=== PATIENT | male | born 1945 | race Caucasian/White ===

== ENCOUNTER 2016-08-04 10:33 | Outpatient (CLI) | payer MEDICARE, OTHER | END 2016-08-04 10:34 | disposition home or self-care (01) | DX: E11.9 Type 2 diabetes mellitus without complications (principal); E78.5 Hyperlipidemia, unspecified; I10 Essential (primary) hypertension; E29.1 Testicular hypofunction ==

== ENCOUNTER 2017-01-01 20:52 | Outpatient (CLI) | payer MEDICARE, OTHER ==
[2017-01-01 19:28] LABS: HEMOGLOBIN A1C 0.7 g/dL
== END 2017-01-01 20:53 | disposition home or self-care (01) ==
LOC: LAB.WCP 20:52
PROVIDERS: ATTEND Family Medicine
DX: E11.9 Type 2 diabetes mellitus without complications (principal); E29.1 Testicular hypofunction
CPT/HCPCS: 36415; 83036; 84403

== ENCOUNTER 2017-07-08 08:00 | Outpatient (CLI) | payer MEDICARE, OTHER ==
[2017-07-08 19:30] LABS: ALBUMIN 4.3 g/dL (3.2-5.5); ALBUMIN/GLOBULIN RATIO 1.5 (1.0-2.2); ALKALINE PHOSPHATASE 35 IU/L (42-121); ALT ALANINE AMINOTRANSFERASE 23 IU/L (10-60); AST ASPARTATE AMINOTRANSFERASE 29 IU/L (10-42); BILIRUBIN,TOTAL 0.8 mg/dL (0.2-1.0); BUN - BLOOD UREA NITROGEN 20 mg/dL (6-20); CALCIUM 9.7 mg/dL (8.5-10.3); CARBON DIOXIDE - CO2 25 mmol/L (21-32); CHLORIDE 100 mmol/L (101-111); CHOL/HDL RATIO 3.4 (<5.0); CHOLESTEROL 165 mg/dL; CREATININE 0.8 mg/dL (0.6-1.2); GFR - MDRD 95 (>89); GLUCOSE 141 mg/dL (70-100); HDL CHOLESTEROL 49 mg/dL; LDL CHOLESTEROL,CALCULATED 96 mg/dL; SODIUM 136 mmol/L (135-145); TOTAL PROTEIN 7.2 g/dL (6.7-8.2); VLDL CHOLESTEROL 20 mg/dL
[2017-07-08 19:35] LABS: HEMOGLOBIN A1C 0.89 g/dL; HEMOGLOBIN A1C % 7.2 % (4.6-6.2)
== END 2017-07-08 08:01 | disposition home or self-care (01) ==
LOC: LAB.WCP 08:00
PROVIDERS: ATTEND Family Medicine
DX: E29.1 Testicular hypofunction (principal); E11.9 Type 2 diabetes mellitus without complications; Z12.5 Encounter for screening for malignant neoplasm of prostate; I10 Essential (primary) hypertension; E78.5 Hyperlipidemia, unspecified
CPT/HCPCS: 36415; 80053; 80061; 82043; 83036; 84443; G0103; 83721; 84153

== ENCOUNTER 2017-08-24 06:16 | Day surgery (SDC) | payer MEDICARE, OTHER ==
[2017-08-24] MEDS ORDERED: LACTATED RINGERS 1,000 ML IV ONE ×2 (06:48→08:19)
[2017-08-24] MEDS ORDERED: fentaNYL 100 MCG/2 ML VIAL IVP ONE (07:40)
[2017-08-24] MEDS ORDERED: MIDAZOLAM 2 MG/2 ML VIAL IVP ONE (07:40)
[2017-08-24 08:41] VITALS: BP 94/44
== END 2017-08-24 06:17 | disposition home or self-care (01) ==
LOC: SDS 06:16
PROVIDERS: ATTEND Surgery
PROC: 0DBN8ZX Excision of Sigmoid Colon, Via Natural or Artificial Opening Endoscopic, Diagnostic (ICD-10-PCS; 2017-08-24)
PROC: 0DBH8ZX Excision of Cecum, Via Natural or Artificial Opening Endoscopic, Diagnostic (ICD-10-PCS; principal; 2017-08-24 07:30)
DX: Z12.11 Encounter for screening for malignant neoplasm of colon (principal); D12.5 Benign neoplasm of sigmoid colon; D12.0 Benign neoplasm of cecum; K64.8 Other hemorrhoids; K57.30 Diverticulosis of large intestine without perforation or abscess without bleeding; Z87.891 Personal history of nicotine dependence; Z79.82 Long term (current) use of aspirin; Z79.4 Long term (current) use of insulin
CPT/HCPCS: 45380; J7120

== ENCOUNTER 2017-12-30 08:00 | Outpatient (CLI) | payer MEDICARE, OTHER ==
[2017-12-30 13:09] LABS: CALCIUM 9.5 mg/dL (8.5-10.3); CREATININE 0.8 mg/dL (0.6-1.2)
[2017-12-30 13:25] LABS: HB2 TOTAL 15.4 g/dL; HEMOGLOBIN A1C 0.88 g/dL; HEMOGLOBIN A1C % 7.4 % (4.6-6.2)
== END 2017-12-30 08:01 | disposition home or self-care (01) ==
LOC: LAB.WCP 08:00
PROVIDERS: ATTEND Family Medicine
DX: I95.9 Hypotension, unspecified (principal); E11.9 Type 2 diabetes mellitus without complications; I10 Essential (primary) hypertension
CPT/HCPCS: 36415; 80048; 83036

== ENCOUNTER 2018-01-12 08:44 | Day surgery (SDC) | payer MEDICARE, OTHER ==
[~2018-01-12 08:44] MED LIST: ceFAZolin 2 GM/50 ML 2 GM/50 ML BAG IV ONE
[2018-01-12] MEDS ORDERED: LACTATED RINGERS 1,000 ML IV ONE (08:47)
--- NOTE | 2018-01-12 09:33 | ANESTHESIA ---
Pre-Anesthesia VS, & Labs - Diagnosis Recurrent Left Inguinal Hernia - Procedure Left Inguinal Hernia Repair Vital Signs: Temp Pulse Resp BP Pulse Ox 36.2 C L 16 145/80 H 97 01/12/18 08:58 01/12/18 08:58 01/12/18 08:58 01/12/18 08:58 Height 6 ft Weight (kg) 92.2 kg - NPO >8 hours - Lab Results Lab results reviewed: Yes Home Medications and Allergies Home Medications: Ambulatory Orders Medication Instructions Recorded Confirmed Atorvastatin Calcium [Lipitor] 20 mg PO DAILY 12/17/12 01/11/18 Glyburide [Diabeta] 5 mg PO BID 12/17/12 01/11/18 Insulin Glargine,Hum.rec.anlog 12 unit SQ DAILY 12/17/12 01/11/18 [Lantus] Metformin HCl [Glumetza] 500 mg PO BID 12/17/12 01/11/18 Ramipril 2.5 mg PO DAILY 12/17/12 01/11/18 Tadalafil [Cialis] 20 mg PO ONCE PRN 01/11/18 01/11/18 Allergies/Adverse Reactions: Allergies Allergy/AdvReac Type Severity Reaction Status Date / Time No Known Drug Allergies Allergy Verified 01/11/18 15:59 Anes History & Medical History - Anesthetic History Anesthesia Complications: reports: No previous complications Family history of Anesthesia Complications: Denies Family history of Malignant Hyperthermia: Denies - Medical History Cardiovascular: reports: High cholesterol Pulmonary: reports: None Gastrointestinal: reports: GERD (Occassional, controlled with diet), Colon polyps Musculoskeletal: reports: None Endocrine/Autoimmune: reports: Type 2 diabetes Skin: reports: None Smoking Status: Former smoker (Quit at age 29) Psychosocial: reports: Alcohol (1-3 glasses of wine per day) - Surgical History General: Appendectomy, Colonoscopy, Other (Inguinal hernia repair) Eyes Ears Nose Throat (EENT): Tonsil/Adenoidectomy Exam General: Alert, Oriented x3, Cooperative Dental: Other (Broken molars, nothing loose) Mouth Openin Fingerbreadth Neck Mobility: Normal Mallampati classification: I Thyromental Distance: 4-6 cm Respiratory: Lungs clear Cardiovascular: Regular rate Cognitive Status: Within normal limits Plan Anesthesia Type: General Consent for Procedure(s) Verified and Reviewed: Yes Code Status: Attempt Resuscitation ASA classification: 2-Mild systemic disease Is this case an emergency?: No
[2018-01-12] MEDS ORDERED: BUPIVACAINE 0.5% PF 30 ML VIAL ONE (10:44)
[2018-01-12] MEDS ORDERED: BUPIVACAINE 0.5% PF 30 ML VIAL INFIL ONE ×2 (11:48)
--- NOTE | 2018-01-12 12:48 | OPERATIVE REPORT ---
Operative Report - General Procedure Date: 01/12/18 Planned Procedure: Recurrent LEFT inguinal herniorrhaphy Pre-Op Diagnosis: Recurrent LEFT inguinal hernia Procedure Performed: Recurrent LEFT inguinal herniorrhaphy with mesh Post Op Diagnosis: Recurrent indirect LEFT inguinal hernia - Procedure Note Primary Surgeon: Silvio Sauceda MD Anesthesia Provider: Mu Sanchez CRNA Anesthesia Technique: General LMA, Local (30 mL 1/2% marcaine) IV Fluids (mL): 400 Estimated Blood Loss (mL): 5 Complications: None. - Other Other Information/Narrative: OPERATIVE DESCRIPTION/REPORT: After verbal and written informed consent was obtained detailing the risks of infection, bleeding requiring transfusion with its risks, nerve injury, and , and after I met with the patient confirming the surgery and the site of the surgery and after initialing the site of the surgery with a surgical marker , the patient was brought to the operative suite and placed supine on the operating table. Great care was taken to avoid pressure points to prevent pressure necrosis or nerve injury. Monitoring devices were applied along with TEDs and pneumatic compressive stockings (to prevent DVT). The patient received preoperative antibiotics for surgical prophylaxis. Mu Sanchez CRNA sedated and anesthetized the patient for the entire procedure. The patient was prepped and draped in the usual sterile manner. With the patient draped my initials were clearly visible. A "time in" then confirmed that the patient was identified with 3 identifiers (name, date and medical record number), the history and physical was in the chart, the signed consent confirming the procedure was in the chart, the patient was in the correct position, the aforementioned prophylactic measures were in place or given, we had the correct personnel and equipment to complete the procedure and that anesthesia, surgery and nursing were given an opportunity to express any concerns. With the agreement of everyone in the room, we proceeded with the operation. A standard inguinal incision was made tracing the previous incision and dissection was carried down to the external oblique aponeurosis using a combination of Metzenbaum scissors and Bovie electrocautery. The external oblique aponeurosis was cleared of overlying adherent tissue, and the external ring was delineated. The external oblique was the incised with a scalpel and this incision was carried out to the external ring using Metzenbaum scissors. Having exposed the inguinal canal, the cord structures were from the canal using blunt dissection, and a Dallas drain was placed around the cord structures at the level of the pubic tubercle. This Dallas drain was then used to retract the cord structures as needed. Adherent cremasteric muscle was dissected free from the cord using Bovie electrocautery. The cord was then explored using a combination of sharp and blunt dissection, and the sac was found anteromedially to the cord structures. The sac was dissected free from the cord structures using a combination of blunt dissection and Bovie electrocautery. Once preperitoneal fat was encountered, the dissection stopped and the sac was high ligated with a 2-0 PDS, transected, the stump cauterized and allowed to retract back into the abdominal cavity and a large Bard Perfix plug (Ref# [id number], Lot# [id number], use date 2022-06-28) inserted into the internal ring. The plug was secured to the internal ring by interrupted 2-0 PDS sutures. I did not reinforce the floor with the enlay patch as the floor had been previously reinforced and was intact without defect or hernia. In fact the floor was very secure. The Marvin drain was removed. The wound was then irrigated using sterile saline, and hemostasis was obtained using Bovie electrocautery. The incision in the external oblique was approximated using a 3-0 Vicryl in a running fashion , thus reforming the external ring. The fascia and skin was then injected with the 1/2% marcaine for alf pain control. The skin incision was approximated with 4-0 Monocryl in a subcuticular fashion. The prep was washed off and Dermabond was applied. At this point a time out was performed that confirmed that all the counts were correct, the procedure that was performed, the blood loss, the IV fluids administered, and the patients condition. A dressing was then applied. Gentle downward traction ensured that the testes were well seated in the scrotum. Having tolerated the procedure well, the patient was taken to short stay in good and stable condition.
[2018-01-12] MEDS ORDERED: oxyCOD/ACETAMIN 5 MG/325 MG TABLET PO ONE (13:33)
[2018-01-12 14:20] VITALS: BP 128/80
== END 2018-01-12 08:45 | disposition home or self-care (01) ==
LOC: SDS 08:44
PROVIDERS: ATTEND Surgery
PROC: 0YU60JZ Supplement Left Inguinal Region with Synthetic Substitute, Open Approach (ICD-10-PCS; principal; 2018-01-12 09:45)
DX: K40.91 Unilateral inguinal hernia, without obstruction or gangrene, recurrent (principal); E11.9 Type 2 diabetes mellitus without complications; Z87.891 Personal history of nicotine dependence; Z79.4 Long term (current) use of insulin
CPT/HCPCS: 49520; A9270; C1781; J0690; J7120

== ENCOUNTER 2021-09-11 11:25 | Outpatient (CLI) | payer MEDICARE, OTHER ==
[2021-09-11 18:39] LABS: CALCIUM 9.9 mg/dL (8.5-10.3)
[2021-09-11 18:53] LABS: THYROID STIMULATING HORMONE 4.05 uIU/mL (0.34-5.60)
[2021-09-12 09:32] LABS: HEPATITIS C ANTIBODY NON-REACTIVE (NON-REACTIVE)
[2021-09-13 13:21] LABS: HSV 1 IGG TYPE SPECIFIC AB <0.90 index
== END 2021-09-11 11:26 | disposition home or self-care (01) ==
LOC: LAB.N 11:25
DX: Z11.59 Encounter for screening for other viral diseases (principal); Z11.3 Encounter for screening for infections with a predominantly sexual mode of transmission; Z79.899 Other long term (current) drug therapy
CPT/HCPCS: 36415; 80048; 81599; 83036; 84443; 86695; 86696; 86803

== ENCOUNTER 2022-11-02 13:30 | Emergency (ER) | payer MEDICARE, OTHER ==
[2022-11-02] MEDS ORDERED: KETOROLAC 30 MG/ML VIAL IM STA (14:03)
[2022-11-02] MEDS ORDERED: CYCLOBENZAPRINE 10 MG TABLET PO STA (14:04)
--- NOTE | 2022-11-02 14:06 | ED Physician Documentation ---
History of Present Illness - Stated complaint Stated Complaint: BACK PX - Chief complaint Chief Complaint: Back Pain - Additonal information Additional information: 77-year-old male presents emergency department for evaluation of 10 days acute right low back pain with radiation down the leg. Reports it began when he was bending over. He is occasionally had back pain in the past but never like this and never for such a sustained period of time. He denies fevers, history of cancer saddle anesthesia or loss of bowel or bladder function. He does have a history of diabetes. States his sugars range anywhere from 1 50-200. Last A1c was 7.1. Patient moved to the [place] several months ago from near the [facility] and has not yet established with a primary care doctor. Over the last 10 days he has been using aspirin, Tylenol and Matheus's back pain relief without resolution of symptoms. Acutely worse this morning which is why he is here. He feels a constant tightness and burning in his posterior thigh. Sometimes he occasionally has numbness in the lateral toes. Now using a cane to walk where he never has before Review of Systems Constitutional: reports: Reviewed and negative Cardiac: reports: Reviewed and negative Respiratory: reports: Reviewed and negative Musculoskeletal: reports: Back pain, Extremity pain. denies: Joint pain, Extremity swelling, Joint swelling Neurologic: reports: Reviewed and negative PD PAST MEDICAL HISTORY - Past Medical History Cardiovascular: High cholesterol Respiratory: None Endocrine/Autoimmune: Type 2 diabetes GI: GERD (Occassional, controlled with diet), Colon polyps : Chronic bladder infection HEENT: None Psych: None Musculoskeletal: None Derm: None - Past Surgical History General: Appendectomy, Colonoscopy, Other (Inguinal hernia repair) HEENT: Tonsil/Adenoidectomy - Present Medications Home Medications: Ambulatory Orders Medication Instructions Recorded Confirmed Atorvastatin Calcium [Lipitor] 20 mg PO HS 12/17/12 11/02/22 Glyburide [Diabeta] 5 mg PO BID 12/17/12 11/02/22 Insulin Glargine,Hum.rec.anlog 12 unit SQ DAILY 12/17/12 11/02/22 [Lantus] Metformin HCl [Glumetza] 500 mg PO BID 12/17/12 11/02/22 Ramipril 2.5 mg PO DAILY 12/17/12 11/02/22 Tadalafil [Cialis] 20 mg PO ONCE PRN 01/11/18 11/02/22 Aspirin [Aspirin Regimen] 81 mg PO DAILY 11/02/22 11/02/22 Cranberry Conc/C/Bacill Coag 1 each PO DAILY 11/02/22 11/02/22 [Cranberry Urinary 250-30-3.5MG] Cyclobenzaprine [Flexeril] 10 mg PO TID PRN #20 tablet 11/02/22 HYDROcod/ACETAM 5/325 [[place] 5/325] 1 tablet PO BID PRN #10 tablet 11/02/22 Metoprolol Tartrate [Lopressor] 12.5 mg PO BID 11/02/22 11/02/22 Multivitamin 1 each PO DAILY 11/02/22 11/02/22 [place]-3/Dha/Epa/Fish Oil [Fish Oil 1 each PO BID 11/02/22 11/02/22 1,000 mg Softgel] Pantoprazole [Protonix] 40 mg PO DAILY 11/02/22 11/02/22 Ubidecarenone [Co Q-10] 100 mg PO DAILY 11/02/22 11/02/22 - Allergies Allergies/Adverse Reactions: Allergies Allergy/AdvReac Type Severity Reaction Status Date / Time No Known Drug Allergies Allergy Verified 11/02/22 13:45 - Social History Smoking Status: Former smoker (Quit at age 29) PD ED PE NORMAL - General General: Alert and oriented X 3, No acute distress, Well developed/nourished - HEENT HEENT: PERRL - Cardiac Cardiac: RRR, No murmur - Respiratory Respiratory: Clear bilaterally - Abdomen Abdomen: Normal bowel sounds, Soft, Non tender, Non distended - Back Back: No spinal TTP (No midline lumbar spinous process tenderness. Reduced forward flexion secondary to pain. Exquisite pain was elicited with palpation of the right SI joint.), Other (Motor strength is 5 of 5 bilaterally at the hips knees and ankles. At this time no paresthesias noted. Neurovascularly intact. Antalgic gait.) - Extremities Extremities: No deformity. No: Normal ROM s pain (Painful movement of the right leg. Positive straight leg exam on right negative on the left) - Neuro Neuro: Alert and oriented X 3, appliance mechanic 2-12 intact Eye Opening: Spontaneous Motor: Obeys Commands Verbal: Oriented GCS Score: 15 Results - Vitals Vitals: Vital Signs - 24 hr 11/02/22 11/02/22 13:42 14:30 Temperature 36.6 C Heart Rate 105 H 79 Respiratory 20 14 Rate Blood Pressure 164/77 H 161/68 H O2 Saturation 96 99 Oxygen O2 Source Room air - Rads (name of study) lumbar CT Relevant Findings:: Final report received (Multilevel lumbar spondylopathy worse at L3-S1 with mild spinal canal stenosis L3-L5. Moderate to severe neuroforaminal stenosis at these levels.) PD Medical Decision Making - ED course Complexity details: reviewed results, d/w patient ED course: 77-year-old male presents to the emergency department for evaluation of 10 days acute right low back pain with radiation to the leg. Occasionally has paresthesias of the lateral foot. Despite Doans Tylenol and aspirin he is continuing to have pain limiting movement. No saddle anesthesia, loss of bowel or bladder function. On exam he has preserved motor strength but an antalgic gait. I discussed with patient and his likely etiology being musculoskeletal given that this occurred when he was bending over. is concerned that this could be a sign of cancer and is requesting a CT scan which given age I do not think is unreasonable though clinically the patient has no red flags to suggest spinal epidural abscess or cauda equina. MRI is not available today at [facility] In the interim I will administer the patient a single dose of ketorolac IM as well as some Flexeril and reassess following the results of the CT scan. 1500: CT scan does show some moderate amount of spinal canal stenosis as well as neuroforaminal narrowing in the L3-S1 region. No lytic lesions or findings of cancer or fracture were noted. History and exam is most consistent with a sciatica. Will avoid steroids at this juncture given history of diabetes. I am recommending a short course of Tylenol and ibuprofen with limited amount of Flexeril and [place] for more severe pain. Here in the ER the patient was given a single dose of Flexeril as well as 30 mg of Toradol IM. On reevaluation he report moderate improvement in pain. He declined a walker for safety. He will follow closely with the PCP. He would benefit from referral to physical therapy and/or consideration of referral to a back pain specialist for epidural injections. Departure - Departure Disposition: 01 Home, Self Care Clinical Impression: Right-sided low back pain with sciatica Qualifiers: Chronicity: acute Sciatica laterality: sciatica of right side Qualified Code(s): M54.41 - Lumbago with sciatica, right side Condition: Stable Record reviewed to determine appropriate education?: Yes Instructions: ED Sciatica Prescriptions: Cyclobenzaprine [Flexeril] 10 mg PO TID PRN #20 tablet PRN Reason: Spasms HYDROcod/ACETAM 5/325 [[place] 5/325] 1 tablet PO BID PRN #10 tablet PRN Reason: Pain Comments: As discussed at the bedside the CT scan shows a lot of degenerative changes of the lower lumbar spine between L3 and S1. There is a small amount of central canal stenosis but there is a lot of narrowing in the region where the nerve roots exit the spine. As discussed during the exam I suspect that you have developed a sciatica or inflammation of the large nerve that runs down the leg. In general I would like you to take Tylenol 500 mg with food 2-3 times a day or alternate with 600 mg of ibuprofen taken with food 2-3 times a day. I encourage you to google sciatica stretching exercises and attempt these at home. For more severe pain a limited prescription of [place] has been sent to the [facility] as well as a muscle relaxer Flexeril. Use these cautiously. They are sedating, make you unsafe to drive and may make you dizzy and prone to falls. Important you follow closely with a primary care provider. You would benefit from referral to physical therapy. You can also consider referral to a back pain specialist if your symptoms or not improving with this treatment over the next several weeks. Return to the ER if you develop any numbness in your genital area, lose control of your bowel or bladder function.
[2022-11-02 14:32] VITALS: BP 161/68
--- NOTE | 2022-11-02 14:40 | CT Report ---
PROCEDURE: LUMBAR SPINE WO INDICATIONS: low back pain; radiation to leg; r/o lytic lesions TECHNIQUE: Noncontrast 3 mm thick sections acquired from the T12 level to the sacrum. Sagittal and coronal refo rmats were constructed. For radiation dose reduction, the following was used: automated exposure co ntrol, adjustment of mA and/or kV according to patient size. COMPARISON: None. FINDINGS: Image quality: Excellent. Bones: There is normal bony alignment. No acute vertebral body compression fractures. No suspiciou s lytic or blastic bony lesions. No pars defects. T12-L1: Facet arthropathy without significant spinal canal or neural foraminal stenosis. L1-L2: Facet arthropathy without significant spinal canal or neural foraminal stenosis. L2-L3: Facet arthropathy without significant spinal canal or neural foraminal stenosis. L3-L4: Near complete intervertebral disc space loss with vacuum disc phenomenon. There is facet art hropathy and mild ligamentum flavum hypertrophy along with posterior disc osteophyte complex resultin g in at least mild spinal canal stenosis. There is severe left and moderate right neural foraminal st enosis. L4-L5: Mild disc height loss. There is facet arthropathy and ligament flavum hypertrophy. This disc bulging results in at least mild spinal canal stenosis. There is severe left and moderate right neur al foraminal stenosis. L5-S1: Mild disc height loss. There is shallow disc bulging with facet arthropathy. No significant spinal canal stenosis. Bilateral severe neural foraminal stenosis. Soft tissues: No retroperitoneal masses or hematomas. Visualized aorta is normal in caliber. Diffu se vascular calcifications throughout the branch vessels. Basilar atelectasis. Multiple bilateral pun ctate nonobstructing nephroliths. Diffuse diverticulosis. IMPRESSION: No acute osseous abnormality. Multilevel lumbar spondylopathy as above worse at L3-L4 through L5-S1 with mild spinal canal stenosis at L3-L4 and L4-L5 along with moderate to severe neural foraminal stenosis at these levels. Diverticulosis. Reviewed by: Robert Jeff DO on 11/02/2022 1:39 PM ALANA Approved by: Robert Jeff DO on 11/02/2022 1:39 PM AKMICHELE Station ID: [id number]
== END 2022-11-02 15:16 | disposition home or self-care (01) ==
LOC: ED 13:30
DX: M54.41 Lumbago with sciatica, right side (principal); E11.9 Type 2 diabetes mellitus without complications; Z79.4 Long term (current) use of insulin; Z87.891 Personal history of nicotine dependence
CPT/HCPCS: 72131; 96372; 99283; 99284; A9270

== ENCOUNTER 2022-11-08 16:27 | Emergency (ER) | payer MEDICARE, OTHER ==
[2022-11-08 16:40] VITALS: BP 144/73
[2022-11-08] MEDS ORDERED: KETOROLAC 60 MG/2 ML VIAL IM STA (16:53)
[2022-11-08] MEDS ORDERED: HYDROmorphone 1 MG/ML CARPUJECT IM STA (16:53)
--- NOTE | 2022-11-08 16:56 | ED Physician Documentation ---
PD HPI BACK PAIN - Stated complaint Stated Complaint: PINCHED NERVE - Chief complaint Chief Complaint: Back Pain - History obtained from History obtained from: Patient - Additional information Additional information: 77-year-old gentleman with history of type 2 diabetes so my partner on the fourth of this month with a history that he started developing back pain after bending over on the of last month. Still sharp pain in the right low back radiating down the right leg. He was seen here and had a lumbar spine CT which demonstrated multilevel lumbar spondylopathy worst at L3-L4 through L5-S1 with mild stenosis at L3-L4 and L4-L5 along with moderate to severe neuroforaminal stenoses at these levels. He was prescribed hydrocodone and cyclobenzaprine which was not effective. Subsequently he followed up with his primary care physician who prescribed him a Medrol Dosepak and gabapentin 300 mg at night. He feels like these meds were working better but developed more pain today. He does note that recently he was doing some heavy gardening and lifting sacks of dirt. He denies saddle anesthesia, fevers, or incontinence. PD PAST MEDICAL HISTORY - Past Medical History Cardiovascular: High cholesterol Respiratory: None Endocrine/Autoimmune: Type 2 diabetes GI: GERD (Occassional, controlled with diet), Colon polyps : Chronic bladder infection HEENT: None Psych: None Musculoskeletal: None Derm: None - Past Surgical History Past Surgical History: Yes General: Appendectomy, Colonoscopy, Other (Inguinal hernia repair) HEENT: Tonsil/Adenoidectomy - Present Medications Home Medications: Ambulatory Orders Medication Instructions Recorded Confirmed Atorvastatin Calcium [Lipitor] 20 mg PO HS 12/17/12 11/02/22 Glyburide [Diabeta] 5 mg PO BID 12/17/12 11/02/22 Insulin Glargine,Hum.rec.anlog 12 unit SQ DAILY 12/17/12 11/02/22 [Lantus] Metformin HCl [Glumetza] 500 mg PO BID 12/17/12 11/02/22 Ramipril 2.5 mg PO DAILY 12/17/12 11/02/22 Tadalafil [Cialis] 20 mg PO ONCE PRN 01/11/18 11/02/22 Aspirin [Aspirin Regimen] 81 mg PO DAILY 11/02/22 11/02/22 Cranberry Conc/C/Bacill Coag 1 each PO DAILY 11/02/22 11/02/22 [Cranberry Urinary 250-30-3.5MG] Cyclobenzaprine [Flexeril] 10 mg PO TID PRN #20 tablet 11/02/22 HYDROcod/ACETAM 5/325 [[place] 5/325] 1 tablet PO BID PRN #10 tablet 11/02/22 Metoprolol Tartrate [Lopressor] 12.5 mg PO BID 11/02/22 11/02/22 Multivitamin 1 each PO DAILY 11/02/22 11/02/22 Richardson-3/Dha/Epa/Fish Oil [Fish Oil 1 each PO BID 11/02/22 11/02/22 1,000 mg Softgel] Pantoprazole [Protonix] 40 mg PO DAILY 11/02/22 11/02/22 Ubidecarenone [Co Q-10] 100 mg PO DAILY 11/02/22 11/02/22 Gabapentin [Neurontin] 300 mg PO TID #60 cap 11/08/22 Oxycodone HCl/Acetaminophen 1 - 2 each PO Q6H PRN #20 tablet 11/08/22 [Percocet 5-325 mg Tablet] - Allergies Allergies/Adverse Reactions: Allergies Allergy/AdvReac Type Severity Reaction Status Date / Time No Known Drug Allergies Allergy Verified 11/08/22 16:40 - Social History Does the pt smoke?: No Smoking Status: Former smoker (Quit at age 29) - Immunizations Immunizations are current?: Yes PD ED PE NORMAL - Vitals Vital signs reviewed: Yes - General General: Alert and oriented X 3, Other (Comfortable at rest but winces with motion) - Abdomen Abdomen: Non tender - Back Back: No spinal TTP (But tender in the right sciatic notch) - Extremities Extremities: Other (The patient has equal and normal Achilles and patellar reflexes bilaterally. Normal sensation in all areas of the legs. Patient denies saddle anesthesia. Normal strength in flexion-extension at the ankles, knees, and flexion of the hips.) - Neuro Neuro: Alert and oriented X 3, Normal speech - Psych Psych: Normal mood, Normal affect Results - Vitals Vitals: Vital Signs - 24 hr 11/08/22 16:35 Temperature 36.3 C L Heart Rate 82 Respiratory 16 Rate Blood Pressure 144/73 H O2 Saturation 96 Oxygen O2 Source Room air PD Medical Decision Making - ED course ED course: This patient has seemingly uncomplicated musculoskeletal back pain. The patient has no "red flags." Specifically denies IV drug use, fevers, incontinence, saddle anesthesia. Spinal epidural abscess was considered, given that the patient has no fever, is not diabetic, has no spinal tenderness, does not use IV drugs, and has no bilateral neurologic symptoms, the diagnosis of spinal epidural abscess is considered exceedingly unlikely. After administration 2 mg of IM Dilaudid and 60 mg of IM Toradol he was moving around much better. Departure - Departure Disposition: 01 Home, Self Care Clinical Impression: Right-sided low back pain with sciatica Condition: Good Record reviewed to determine appropriate education?: Yes Instructions: ED Sciatica Follow-Up: Greta Massey MD [Provider Admit Priv/Credential] - Prescriptions: Gabapentin [Neurontin] 300 mg PO TID #60 cap Oxycodone HCl/Acetaminophen [Percocet 5-325 mg Tablet] 1 - 2 each PO Q6H PRN #20 tablet PRN Reason: pain Comments: I sent your prescription electronically to [facility] in [place]. You can continue the steroid Dosepak that your primary care physician prescribed you. I am increasing your dose of the gabapentin up to 3 times a day and with a little stronger painkiller. The painkiller does have Tylenol in it, but she can also take a extra strength Tylenol (1 pill) every 6 hours to help as well. Call your doctor to arrange a follow-up appointment, make the next available appointment. In the interim, return anytime if worse or if new symptoms develop. I am prescribing a short course of narcotic pain medication for you. These are potentially dangerous and addictive medications that should be used carefully. These medications may constipate you. Take an xveh-bto-cyfuojd stool softener (docusate) twice daily with plenty of water while taking these medications. If you go 24 hours without a bowel movement, take [id number] miralax, per package instructions. Do not drink or drive while taking these medications. If you received narcotic or sedating medications while in the emergency department, do not drive for 24 hours. Store this medication in a safe, secure place and out of reach of children. It is a violation of federal law to give or sell this medication to another person or to use in a manner other than prescribed. The ED will not refill narcotic prescriptions, including prescriptions lost or stolen. To dispose of unwanted medications: 1. [facility] provides a drop box for medication in pill form only (no liquids) 8:00 am to 4:30 p.m. Thursday-Thursday in the lobby of the [facility] [place], [address] Empty pills into ziplock bag before disposal. Call [phone] for information. 2.[employer] is a free service available to all [facility] residents. Go to [email or web address] Note that many narcotic pain relievers also contain Tylenol/acetaminophen. Please ensure that your total dose of acetaminophen from all sources does not exceed 3 g (3000 mg) per day.
[2022-11-08] MEDS ORDERED: oxyCODONE/ACET 5/325 Prepack 4 PO STA (17:31)
== END 2022-11-08 18:07 | disposition home or self-care (01) ==
LOC: ED 16:27
DX: M54.41 Lumbago with sciatica, right side (principal); Z87.891 Personal history of nicotine dependence
CPT/HCPCS: 96372; 99283; J1170

== ENCOUNTER 2023-03-30 09:58 | Outpatient (CLI) | payer MEDICARE, OTHER ==
[2023-03-30 12:12] LABS: BASOPHILS # (AUTO) 0.1 10^3/uL (0.0-0.1); EOSINOPHILS # (AUTO) 0.2 10^3/uL (0.0-0.7); EOSINOPHILS % (AUTO) 2.8 %; HCT - HEMATOCRIT 40.6 % (42.0-52.0); HGB - HEMOGLOBIN 13.4 g/dL (14.0-18.0); LYMPHOCYTES # (AUTO) 2.7 10^3/uL (1.5-3.5); LYMPHOCYTES % (AUTO) 37.1 %; MEAN CORPUSCULAR HEMOGLOBIN 33.4 pg (27.0-31.0); MEAN CORPUSCULAR VOLUME 101.2 fL (80.0-94.0); MONOCYTES # (AUTO) 0.9 10^3/uL (0.0-1.0); MONOCYTES % (AUTO) 12.8 %; NEUTROPHILS # (AUTO) 3.3 10^3/uL (1.5-6.6); PLT - PLATELET COUNT 205 10^3/uL (130-450); RED BLOOD COUNT 4.01 10^6/uL (4.70-6.10); RED CELL DISTRIBUTION WIDTH 12.6 % (12.0-15.0); WHITE BLOOD COUNT 7.2 x10^3/uL (4.8-10.8)
[2023-03-30 13:03] LABS: ALBUMIN 4.1 g/dL (3.2-5.5); ALBUMIN/GLOBULIN RATIO 1.8 (1.0-2.2); ALKALINE PHOSPHATASE 46 IU/L (42-121); ALT ALANINE AMINOTRANSFERASE 13 IU/L (10-60); AST ASPARTATE AMINOTRANSFERASE 13 IU/L (10-42); BILIRUBIN,TOTAL 0.5 mg/dL (0.2-1.0); BUN - BLOOD UREA NITROGEN 16 mg/dL (6-20); CALCIUM 9.7 mg/dL (8.5-10.3); CARBON DIOXIDE - CO2 32 mmol/L (21-32); CHLORIDE 106 mmol/L (101-111); CHOL/HDL RATIO 2.9 (<5.0); CHOLESTEROL 138 mg/dL; CREATININE 0.9 mg/dL (0.6-1.3); GFR - MDRD 81 (>89); GLUCOSE 116 mg/dL (74-104); HDL CHOLESTEROL 47 mg/dL; LDL CHOLESTEROL,CALCULATED 74 mg/dL; LDL/HDL RATIO 1.6 (<3.6); POTASSIUM 4.6 mmol/L (3.5-4.5); SODIUM 141 mmol/L (135-145); TOTAL PROTEIN 6.4 g/dL (6.4-8.9); TRIGLYCERIDES 83 mg/dL (48-352); VLDL CHOLESTEROL 17 mg/dL
[2023-03-30 13:05] LABS: THYROID STIMULATING HORMONE 3.49 uIU/mL (0.34-5.60)
[2023-03-30 13:07] LABS: CREATININE,URINE 142.8 mg/dL; MICROALBUM/CREATININE RATIO,UR 8.4 ug/mg (<30.0); MICROALBUMIN,URINE 1.2 mg/dL
[2023-03-30 13:19] LABS: ESTIMATED AVERAGE GLUCOSE 174 mg/dL (70-100); HEMOGLOBIN A1c% 7.7 % (4.27-6.07)
== END 2023-03-30 09:59 | disposition home or self-care (01) ==
LOC: LAB.N 09:58
PROVIDERS: ATTEND Internal Medicine
DX: E11.9 Type 2 diabetes mellitus without complications (principal); E78.5 Hyperlipidemia, unspecified; I10 Essential (primary) hypertension; Z86.16 Personal history of COVID-19; M54.30 Sciatica, unspecified side; Z80.0 Family history of malignant neoplasm of digestive organs; Z79.899 Other long term (current) drug therapy
CPT/HCPCS: 36415; 80053; 80061; 82043; 82570; 82607; 83036; 83721; 84443; 85025

== ENCOUNTER 2023-12-01 17:54 | Outpatient (CLI) | payer MEDICARE, OTHER | END 2023-12-01 17:55 | disposition E | LOC: EMS 17:54 ==